=== PATIENT | male | born 1950 | race African-American/Black ===

== ENCOUNTER 2021-10-17 15:56 | Observation (INO) ==
[2021-10-17 16:51] LABS: Basophils % 0.5 %; Eosinophils # 0.1 K/mcL (0.0-0.6); Eosinophils % 1.6 %; Hematocrit 41.7 % (37.5-50.1); Hemoglobin 13.7 g/dL (12.9-16.9); Immature Granulocytes % 0.3 % (0-4); Immature Platelets 1.8 % (1.1-6.1); Lymphocytes # 2.5 K/mcL (0.6-4.6); Lymphocytes % 31.9 %; Mean Corpuscular HGB Conc 32.9 g/dL (31.6-35.5); Mean Corpuscular Hemoglobin 30.9 pg (28.0-33.3); Mean Corpuscular Volume 94.1 fL (83.0-100.0); Mean Platelet Volume 9.2 fL (9.4-12.4); Monocytes # 0.9 K/mcL (0.0-1.3); Monocytes % 11.8 %; Neutrophils # 4.3 K/mcL (1.6-8.9); Platelet Count 142 K/mcL (140-400); Red Blood Count 4.43 M/mcL (4.19-5.50); Red Cell Distribution Width 13.6 % (11.5-14.5); Segmented Neutrophils % 53.9 %
[2021-10-17 16:58] LABS: INR 1.4; Prothrombin Time 15.2 Seconds (9.4-12.1)
[2021-10-17 17:04] LABS: D-Dimer < 215 ng/mLFEU (0-500)
[2021-10-17 17:11] LABS: BUN/Creatinine Ratio 14 (6-26); Blood Urea Nitrogen 19 mg/dL (8-23); Calcium 9.3 mg/dL (8.6-10.3); Carbon Dioxide 26 mEq/L (23-29); Chloride 107 mEq/L (98-107); Glucose 123 mg/dL (70-105); Osmolality,Calculated 296 (280-300); Potassium 4.1 mEq/L (3.5-5.1); Sodium 141 mEq/L (136-145); eGFR For African Americans > 60 (> 60); eGFR For Non-African Americans 52 (> 60)
[2021-10-17 17:19] LABS: Troponin I 0.05 ng/mL (< 0.04)
[2021-10-17 17:44] LABS: Magnesium 1.9 mg/dL (1.6-2.6); Thyroid Stimulating Hormone 1.545 mcIU/mL (0.340-5.600)
[2021-10-17] MEDS: 0.9 % Sodium Chloride 1,000 ML IVC ONE ×2 (18:25→20:21)
[2021-10-17] MEDS ORDERED: *HR* Adenosine 6 MG/2 ML VIAL IVP ONE ×3 (20:01→20:02)
[2021-10-17] MEDS ORDERED: 0.9 % Sodium Chloride 1,000 ML ONE (20:05)
[2021-10-17] MEDS ORDERED: Melatonin 3 MG TABLET PO PRN (22:40)
[2021-10-17] MEDS ORDERED: Acetaminophen 325 MG TABLET PO PRN (22:40)
[2021-10-17] MEDS ORDERED: Ondansetron 4 MG/2 ML VIAL IVP PRN (22:40)
[2021-10-17] MEDS ORDERED: Naloxone 0.4 MG/ML INJ IVP PRN (22:40)
[2021-10-17] MEDS ORDERED: 0.9 % Sodium Chloride 1,000 ML IVC SCH (22:45)
[2021-10-17] MEDS ORDERED: *HR* Metoprolol 5 MG/5 ML VIAL IVP PRN (23:29)
[2021-10-18 00:52] LABS: Influenza A PCR Negative (Negative); Influenza B PCR Negative (Negative); Resp. Syncytial Virus PCR Negative (Negative)
[2021-10-18 00:53] LABS: SARS-CoV-2 by PCR (In House) Negative (Negative)
[2021-10-18 00:57] LABS: Bilirubin,Urine Negative (Negative); Blood,Urine Negative (Negative); Clarity,Urine Clear (Clear); Color,Urine Light-Yellow (Yellow); Glucose,Urine (UA) Normal (Normal); Ketones,Urine Negative (Negative); Leukocyte Esterase,Urine Moderate (Negative); Mucus,Urine Few per lpf (None-Few); Nitrite,Urine Negative (Negative); PH,Urine 6.5 pH Units (5.0-8.0); Protein,Urine Negative (Neg-Trace); RBC,Urine 0-3 per hpf (0-3); Specific Gravity,Urine 1.014 (1.010-1.025); Urobilinogen,Urine Normal (Normal); WBC,Urine 30-50 per hpf (0-3)
[2021-10-18 02:36] LABS: Hemoglobin 13.4 g/dL (12.9-16.9); Mean Corpuscular HGB Conc 32.7 g/dL (31.6-35.5); Mean Corpuscular Volume 94.9 fL (83.0-100.0); Mean Platelet Volume 9.1 fL (9.4-12.4); Platelet Count 108 K/mcL (140-400); Red Blood Count 4.32 M/mcL (4.19-5.50); Red Cell Distribution Width 13.7 % (11.5-14.5)
[2021-10-18 02:57] LABS: INR 1.2; Prothrombin Time 13.3 Seconds (9.4-12.1)
[2021-10-18 02:59] LABS: Activated Partial Thrombo Time 36.9 Seconds (26.0-36.0)
[2021-10-18 03:26] LABS: Alanine Aminotransferase 20 Units/L (7-52); Albumin 3.8 g/dL (3.5-5.7); Albumin/Globulin Ratio 1.7 (1.1-2.2); Alkaline Phosphatase 69 Units/L (34-104); Aspartate Amino Transferase 25 Units/L (13-39); BUN/Creatinine Ratio 14 (6-26); Bilirubin,Total 0.4 mg/dL (0.3-1.0); Blood Urea Nitrogen 16 mg/dL (8-23); Calcium 9.5 mg/dL (8.6-10.3); Carbon Dioxide 27 mEq/L (23-29); Chloride 108 mEq/L (98-107); Chol/HDL Ratio 3.9 (0-4.9); Cholesterol 120 mg/dL (< 200); Globulin 2.3 g/dL (2.4-3.5); Glucose 103 mg/dL (70-105); HDL Cholesterol 31 mg/dL (40-59); LDL Cholesterol,Calculated 49 mg/dL (< 100); Osmolality,Calculated 293 (280-300); Potassium 4.4 mEq/L (3.5-5.1); Sodium 141 mEq/L (136-145); Total Protein 6.1 g/dL (6.4-8.9); Triglycerides 201 mg/dL (< 150); Troponin I 0.25 ng/mL (< 0.04); eGFR For African Americans > 60 (> 60); eGFR For Non-African Americans > 60 (> 60)
[2021-10-18] MEDS ORDERED: Perflutren Lipid Microsphere 1.3 ML in 0.9 % Sodium Chloride 8.7 ML IVP PRN (10:21)
[2021-10-18] MEDS ORDERED: hydrOXYzine pamoate 25 MG CAPSULE PO PRN (10:21)
[2021-10-18] MEDS: Metoprolol XL (24 HR) Succ 25 MG TAB.ER.24H PO SCH (11:18)
[2021-10-18] MEDS: Isosorbide MONOnitrate (24 HR) 30 MG TAB.ER.24H PO SCH (11:18)
[2021-10-18] MEDS: Aspirin 81 MG TAB.CHEW PO SCH (11:18)
[2021-10-18] MEDS: Apixaban 5 MG TABLET PO SCH ×2 (11:18→20:51)
[2021-10-18] MEDS: Gabapentin 400 MG CAPSULE PO SCH ×2 (15:05→20:51)
[2021-10-18] MEDS: Divalproex (24 HR) 500 MG TABLET PO SCH (20:51)
[2021-10-18] MEDS ORDERED: QUEtiapine Fumarate 25 MG TABLET PO SCH (21:00)
[2021-10-19] MEDS: Apixaban 5 MG TABLET PO SCH ×2 (08:46→19:23)
[2021-10-19] MEDS: Gabapentin 400 MG CAPSULE PO SCH ×3 (08:46→19:23)
[2021-10-19] MEDS: Aspirin 81 MG TAB.CHEW PO SCH (08:46)
[2021-10-19] MEDS: Metoprolol XL (24 HR) Succ 25 MG TAB.ER.24H PO SCH (08:46)
[2021-10-19] MEDS: Isosorbide MONOnitrate (24 HR) 30 MG TAB.ER.24H PO SCH (08:46)
[2021-10-19] MEDS: Divalproex (24 HR) 500 MG TABLET PO SCH (19:23)
[2021-10-19] MEDS ORDERED: QUEtiapine Fumarate 100 MG TABLET PO SCH (21:00)
[2021-10-20 07:06] VITALS: BP 165/90; PULSE 68; TEMP 98.3; O2SAT 94
[2021-10-20] MEDS: Gabapentin 400 MG CAPSULE PO SCH (08:52)
[2021-10-20] MEDS: Aspirin 81 MG TAB.CHEW PO SCH (08:52)
[2021-10-20] MEDS: Isosorbide MONOnitrate (24 HR) 30 MG TAB.ER.24H PO SCH (08:53)
[2021-10-20] MEDS: Apixaban 5 MG TABLET PO SCH (08:53)
[2021-10-20] MEDS ORDERED: Metoprolol XL (24 HR) Succ 25 MG TAB.ER.24H PO SCH (09:00)
[2021-10-20 09:23] LABS: Influenza A PCR Negative (Negative); Influenza B PCR Negative (Negative); Resp. Syncytial Virus PCR Negative (Negative)
[2021-10-20 09:40] LABS: SARS-CoV-2 by PCR (In House) Negative (Negative)
== END 2021-10-20 09:50 ==
LOC: 3BNU 15:56 → EMEROOARM 15:56 → 3BNU 22:37
PROVIDERS: ADMIT Internal Medicine; ATTEND Internal Medicine